=== PATIENT | female | born 1965 | race Caucasian/White ===

== ENCOUNTER 2025-06-15 09:49 | Emergency (ER) | payer BC ==
[~2025-06-15] VITALS: Ht 167.6 cm; Wt 65.0 kg
[2025-06-15 10:00] VITALS: TEMP 98.2
--- NOTE | 2025-06-15 10:35 | Physician Documentation ---
History of Present Illness ~ Chief Complaint: Back Pain Stated Complaint: BACK PAIN Time Seen by MD: 10:19 OK to notify your PCP?: Yes Primary Medical Doctor: Jeff KERN Source: patient Mode of Arrival: POV Exam Limitations: no limitations HPI 60-year-old female who is here with pain behind her left scapula it started about four days ago when she was sitting on her scooter and making cookies. She states that she was slightly twisted on her scooter to make the cookies when the pain started and then it has just gotten exponentially worse. Pain feels a lot better when someone puts direct pressure on the area. Pain is localized to her left scapula. No chest pain, shortness of breath, arm pain, rashes. Pain is unchanged with deep respirations or with movement of her extremities. Last night she took an oxycodone that she had left over from her recent ankle surgery and states this provided her with relief for only about 30 minutes. She has been taking Aleve and Tylenol otherwise. She has never had anything like this before. Patient also reports that she hit her left hand about four weeks ago shortly after she had surgery on her ankle and she believes that she broke her 5th finger. She has not imaging studies. Areas still ecchymotic. Medication Reconciliation Allergies: Coded Allergies: No Known Allergies (Unverified , 06/15/25) Scheduled Cyclobenzaprine* (Cyclobenzaprine*), 1 TAB PO HS Methylprednisolone (Medrol Dosepak), 0 PO UD Past Medical History Past Medical History: No Pertinent History Past Surgical History: noncontributory Drug Use: none Review of Systems All Other Systems at this time: Reviewed and Negative Physical Exam Physical Exam Vital Signs: Temperature: 98.2, Heart Rate: 78, Respiratory Rate: 14, BP: 160/89, Pulse Oximetry: 98, Weight: 65.000 Oxygen Flow Rate: 0 Physical Exam General Appearance: Alert, WD/WN. NAD. HEENT: NCAT, PERRL, EOMI. Neck: Supple, trachea midline. Cardiovascular: RRR. No m/r/g. Lungs: CTAB. Breathing unlabored Extremities: Normal inspection. No edema. BACK/MSK: VERY FOCAL TTP OVER THE LEFT SUBSCAPULARIS MUSCLE. NTTP OVER SPINOUS PROCESSES OF CERVICAL THROUGH THORACIC SPINE. AROM OF EXTREMITIES FULL. Skin: Warm/dry, normal color Neurological: Alert and oriented x4, normal gait. Psychiatric: Affect congruent with mood. Progress Results/Orders Results/Orders Orders - FAHAD GUILLAUME Hand, Complete (3vw Min) (06/15/25 10:36) Completed Orders - FAHAD GUILLAUME Ketorolac Trometh 15mg/Ml Vial (Toradol (06/15/25 10:30) Hand, Complete (3vw Min) (06/15/25 10:36) Medications Received in ER Medications (Trade) Dose Ordered Sig/Ivonne Route PRN Reason Start Time Stop Time Status Last Admin Dose Admin (Toradol injection) 30 mg ONCE ONCE IM 06/15/25 10:30 06/15/25 10:31 DC 06/15/25 11:17 30 MG Vital Signs 06/15/25 06/15/25 06/15/25 10:00 10:09 12:25 Temp 98.2 Pulse 80 78 84 Resp 18 14 14 B/P (MAP) 152/96 160/89 (112) 176/93 Pulse Ox 99 98 100 O2 Flow Rate 0 0 Medical Decision Making Additional information obtaine: N/A Findings N/A Differential Dx:Considerations: AAA, Aortic dissection, Hepatitis, HNP, Musculoskeletal pain, Strain Differential Diagnosis COMPRESSION FRACTURE CONSIDERED GIVEN HER AGE AND THE LACK OF TRAUMA HOWEVER PATIENT HAS NO TENDERNESS OVER HER SPINOUS PROCESSES AND PAIN OVER THE AREA SEEMS TO IMPROVE WITH DIRECT PRESSURE. CARDIAC ETIOLOGY ALSO CONSIDERED CONSIDERING THE PAIN IS OVER HER LEFT SCAPULA AREA HOWEVER IF IT WAS CARDIAC IT WOULD NOT BE BETTER WITH DIRECT PRESSURE TO THE AREA AND WOULD NOT PRESENT THIS WAY. Departure Time of Disposition: 10:34 Disposition: 01 HOME / SELF CARE / HOMELESS Impression: Primary Impression: Strain of thoracic region Qualified Codes: S29.019A - Strain of muscle and tendon of unspecified wall of thorax, initial encounter Additional Impression: Finger fracture, left Qualified Codes: S62.645A - Nondisplaced fracture of proximal phalanx of left ring finger, initial encounter for closed fracture Condition: Stable Discharge Instructions: Acute Back Pain, Adult Additional Instructions: Medrol dose devan and flexeril If chest pain or SOB return to ER as this would be concerning for cardiac issue If pain down arm, return to ER as well Jonnathan tape your 4th and 5th digits together, since you broke your finger 4weeks ago, I did not feel splinting was a big gain f/u with PCP next week Referrals: NO PRIMARY CARE PROVIDER (PCP) Prescriptions Cyclobenzaprine* (Cyclobenzaprine*) 10 Mg Tablet 1 TAB PO HS for muscle spasms for 10 Days, #10 TAB 0 Refills Prov: FAHAD GUILLAUME 06/15/25 Methylprednisolone (Medrol Dosepak) 4 Mg Tab.ds.pk 0 PO UD, #21 TAB 0 Refills take 6 Pills Day 1, 5 Pills Day 2, 4 Pills Day 3, 3 Pills Day 4, 2 Pills Day 5 and 1 pill Day 6 Prov: FAHAD GUILLAUME 06/15/25 Education Educated: Patient Educated regarding: diagnosis, treatment, need for follow up Signature Scribe Signature: idalia Attestation: FAHAD Baca Jun 15, 2025 10:35
--- NOTE | 2025-06-15 11:09 | RADIOLOGY REPORT ---
DI HAND, COMPLETE (3VW MIN), left hand. Comparison: None Indication: ttp over 4th and 5th metacarpals Findings: Mildly angulated fracture of the base of the 5th proximal phalanx.Osteopenia. Degenerative changes. IMPRESSION: 5th proximal phalanx fracture.
[2025-06-15] MEDS: ketorolac trometh 15mg/ml vial 15 MG/ML ML IM ONE (11:17)
[2025-06-15] MEDS ORDERED: CYCL-1 PO (11:49)
[2025-06-15] MEDS ORDERED: METH4TAB81 PO (11:49)
[2025-06-15 12:25] VITALS: BP 176/93; PULSE 84; RESP 14; O2SAT 100
== END 2025-06-15 12:27 | disposition home or self-care (01) ==
LOC: ER 09:50
DX: S62.645A Nondisplaced fracture of proximal phalanx of left ring finger, initial encounter for closed fracture (principal); S29.012A Strain of muscle and tendon of back wall of thorax, initial encounter; Z79.899 Other long term (current) drug therapy; X50.1XXA Overexertion from prolonged static or awkward postures, initial encounter; Y93.89 Activity, other specified; Y92.89 Other specified places as the place of occurrence of the external cause; Y99.8 Other external cause status
CPT/HCPCS: 73130; 96372; 99283; J1885